=== PATIENT | female | born 1995 | race Caucasian/White ===

== ENCOUNTER → 2016-06-07 09:50 | Outpatient (CLI) | payer MEDICAID ==
[~2016-06-07 09:50] MED LIST: IBUPROFEN600 MG PO; PERCOCET 5-3251 TAB PO; PRENATAL COMPLE1 TAB PO
[2016-06-07 11:34] LABS: UDS - AMPHET NEGATIVE QUAL (NEGATIVE); UDS - BARB NEGATIVE QUAL (NEGATIVE); UDS - BENZO NEGATIVE QUAL (NEGATIVE); UDS - COCAINE NEGATIVE QUAL (NEGATIVE); UDS - METH NEGATIVE QUAL (NEGATIVE); UDS - OPIATE POSITIVE QUAL (NEGATIVE); UDS - PCP NEGATIVE QUAL (NEGATIVE); UDS - THC POSITIVE QUAL (NEGATIVE)
[2016-06-07 11:42] LABS: ALBUMIN 2.8 g/dL (3.4-5.0); ALKALINE PHOSPHATASE 109 U/L (46-116); ALT (SGPT) 14 U/L (10-68); BILIRUBIN - DIRECT 0.12 mg/dL (0.00-0.30); BILIRUBIN - INDIRECT 0.43 mg/dL (0.00-1.00); BILIRUBIN - TOTAL 0.55 mg/dL (0.2-1.3); CALC OSMOLALITY 273 mosm/kg (275-300); CALCIUM 9.1 mg/dL (8.5-10.1); CARBON DIOXIDE 25.7 mmol/L (21.0-32.0); CHLORIDE - SERUM 103 mmol/L (98-107); CREATININE - SERUM 0.7 mg/dL (0.6-1.3); GLUCOSE 72 mg/dL (74-106); PROTEIN - SERUM 6.6 g/dL (6.4-8.2); SODIUM 138 mmol/L (136-145); UREA NITROGEN 11 mg/dL (7-18); URIC ACID 4.6 mg/dL (2.6-7.2); eGFR NON AFRICAN AMERICAN > 90 mL/min (90-120)
[2016-06-07 11:45] LABS: BASOPHILS 0.1 % (0.0-2.0); EOSINOPHILS 0.2 % (0-7); HEMATOCRIT 35.7 % (36.0-48.0); HEMOGLOBIN 12.1 g/dL (12-16); IMMATURE GRANULOCYTES 0.6 % (0-5); LYMPHOCYTES 15.3 % (15-50); MCH 33.2 pg (26.0-34.0); MCHC 33.9 g/dL (31.0-37.0); MCV 97.8 fL (80.0-100.0); MEAN PLATELET VOLUME 10.9 fL (7.4-10.4); MONOCYTES 7.8 % (2-11); RBC 3.65 10x6/uL (4.00-5.40); RDW 12.3 % (11.5-14.5); WBC 11.3 10x3/uL (4.8-10.8)
[2016-06-07 12:01] LABS: APPEARANCE HAZY (CLEAR); BILIRUBIN NEGATIVE (NEGATIVE); COLOR YELLOW (YELLOW); GLUCOSE NEGATIVE (NEGATIVE); KETONE NEGATIVE (NEGATIVE); LEUKOCYTE ESTERASE 2+ (NEGATIVE); NITRITE NEGATIVE (NEGATIVE); PLATELET COUNT 225 10x3/uL (130-400); PROTEIN NEGATIVE (NEGATIVE)
[2016-06-07 12:05] LABS: BACTERIA MANY /hpf (NONE SEEN); EPITHELIAL CELLS 0-5 /hpf (0-5); MUCUS <1+ /lpf (NONE SEEN)
[2016-06-09 18:27] LABS: PROTEIN - URINE 24.6 mg/dL (0.0-11.9)
[2016-06-11 13:12] LABS: UDSC - AMPHET Negative ng/mL (Cutoff=1000); UDSC - BARB Negative ng/mL (Cutoff=300); UDSC - BENZO Negative ng/mL (Cutoff=300); UDSC - COC Negative ng/mL (Cutoff=300); UDSC - METH Negative ng/mL (Cutoff=300); UDSC - OPIATES Negative (Cutoff=300); UDSC - PCP Negative ng/mL (Cutoff=25); UDSC - PROPOXY Negative ng/mL (Cutoff=300); UDSC - THC Positive (Cutoff=50)
[2016-06-20 09:20] VITALS: BMI 21.8
== END | disposition home or self-care (01) ==
LOC: D.LDO 09:50
PROVIDERS: Specialist
DX: Z34.83 Encounter for supervision of other normal pregnancy, third trimester (principal); Z3A.36 36 weeks gestation of pregnancy; R03.0 Elevated blood-pressure reading, without diagnosis of hypertension

== ENCOUNTER → 2016-06-09 17:15 | Outpatient (CLI) | payer MEDICAID ==
[2016-06-20 09:20] VITALS: BMI 21.8
== END | disposition home or self-care (01) ==
LOC: D.LDO 17:15
DX: O36.5930 Maternal care for other known or suspected poor fetal growth, third trimester, not applicable or unspecified (principal); Z3A.37 37 weeks gestation of pregnancy

== ENCOUNTER → 2016-06-15 13:30 | Outpatient (CLI) | payer MEDICAID ==
[2016-06-20 09:20] VITALS: BMI 21.8
== END | disposition home or self-care (01) ==
LOC: D.LDO 13:30
DX: O36.5930 Maternal care for other known or suspected poor fetal growth, third trimester, not applicable or unspecified (principal); Z3A.37 37 weeks gestation of pregnancy

== ENCOUNTER 2016-06-20 04:00 | Inpatient (IN) | payer MEDICAID ==
[~2016-06-20] VITALS: Ht 162.6 cm; Wt 57.6 kg
[2016-06-20] VITALS (9 sets, daily range): BP systolic 93–143; BP diastolic 51–88; Ht 162.6 cm; Wt 57.6 kg
[2016-06-20] MEDS ORDERED: PRENATAL COMPLE1 TAB PO (04:46)
[2016-06-20 06:34] LABS: HEMATOCRIT 33.5 % (36.0-48.0); HEMOGLOBIN 11.6 g/dL (12-16); MCH 33.5 pg (26.0-34.0); MCHC 34.6 g/dL (31.0-37.0); MCV 96.8 fL (80.0-100.0); MEAN PLATELET VOLUME 11.5 fL (7.4-10.4); RBC 3.46 10x6/uL (4.00-5.40); RDW 12.3 % (11.5-14.5); WBC 12.3 10x3/uL (4.8-10.8)
[2016-06-20 06:49] LABS: APPEARANCE HAZY (CLEAR); BILIRUBIN NEGATIVE (NEGATIVE); COLOR YELLOW (YELLOW); GLUCOSE NEGATIVE (NEGATIVE); KETONE NEGATIVE (NEGATIVE); LEUKOCYTE ESTERASE TRACE (NEGATIVE); NITRITE NEGATIVE (NEGATIVE); PROTEIN 1+ mg/dL (NEGATIVE); UROBILINOGEN NORMAL (NORMAL)
[2016-06-20 06:50] LABS: BACTERIA MANY /hpf (NONE SEEN); EPITHELIAL CELLS 0-5 /hpf (0-5); RED CELLS - URINE 0-5 /hpf (0-5); WHITE CELLS - URINE 0-5 /hpf (0-5)
[2016-06-20 06:54] LABS: UDS - AMPHET NEGATIVE QUAL (NEGATIVE); UDS - BARB NEGATIVE QUAL (NEGATIVE); UDS - BENZO NEGATIVE QUAL (NEGATIVE); UDS - COCAINE NEGATIVE QUAL (NEGATIVE); UDS - METH NEGATIVE QUAL (NEGATIVE); UDS - OPIATE POSITIVE QUAL (NEGATIVE); UDS - PCP NEGATIVE QUAL (NEGATIVE); UDS - THC POSITIVE QUAL (NEGATIVE)
--- NOTE | 2016-06-20 14:37 | NUR ---
RECEIVED PT FROM VIA BED TO ROOM 1214. BED LOCKED AND PLACED IN LOW POSITION. VSS. PT ORIENTED TO ROOM, BED, AND CALL LIGHT. SR UPX2. CALL LIGHT IN REACH. C/O "BURNING" TO INCISION.
--- NOTE | 2016-06-20 14:40 | NUR ---
FUNDUS FIRM AT U/1. RUBRA LOCHIA MOD AMT. NO CLOTS EXPRESSED ON FUNDAL MASSAGE. ABDOMINAL DRESSING DRY WITHOUT DRAINAGE. PERIPAD CHANGED. SMALL AMT OF EDEMA NOTED TO LABIA. HRRR WITHOUT AUDIBLE MURMUR. BBS CLEAR. BS X 4-HYPOACTIVE. ICE PACK TO INCISION. NEG HOMANS' SIGN. PPP. PT INSTRUCTED ON USE OF INCENTIVE SPIROMETER. PT PULLS 2000 WITHOUT DIFFICULTY. SURGICAL PILLOW PROVIDED TO PT AND INSTRUCTED ON TCDB TECHNIQUE.
--- NOTE | 2016-06-20 15:04 | NUR ---
DEMEROL LANDING MAN STARTED ORDERED. PT INSTRUCTED ON MED AND USE OF BUTTON. DEMONSTRATES UNDERSTANDING.
--- NOTE | 2016-06-20 15:10 | NUR ---
SCDS ON BLE. PUMP ON. PT INSTRUCTED ON PURPOSE. VERBALIZES UNDERSTANDING.
--- NOTE | 2016-06-20 15:44 | NUR ---
PT C/O INCISIONAL PAIN/BURNING OF "9" ON 0-10 PAIN SCALE. TORADOL 30 MG GIVEN SIVP OVER 2 MINUTES. PT INSTRUCTED ON MED. VERBALIZES UNDERSTANDING.
--- NOTE | 2016-06-20 17:05 | NUR ---
PT REPOSITIONS TO LEFT SIDE. PROPPED WITH PILLOWS. STANLEY WELL.
--- NOTE | 2016-06-20 18:20 | NUR ---
PT IS RESTING IN BED. NEW IV BAG HUNG. PT OFFERS NO COMPLAINTS. IV PATENT L WRIST. BECK INTACT. I & O RECORDED.
--- NOTE | 2016-06-20 19:40 | NUR ---
AWAKE DURING INITIAL ROUNDS. INTRODUCED SELF. V/S TAKEN. ASSESSMENT DONE. STATUS POST "EMERGENCY" C/S TODAY FOR IUGR/NONREASSURING STATUS. A1. LOW TRANSVERSE INCISION WITH DERMABOND. BECK CATH TO DRAINAGE BAG PATENT. IVF--NS + 20 units PITOCIN TO L WRIST. ON DEMEROL SHEETFED PRESS OPERATOR FOR PAIN MANAGEMENT. SCD's TO BOTH LOWER EXTREMITIES. ICE BAG TO ADB. FAMILY IN THE ROOM.
--- NOTE | 2016-06-20 20:00 | NUR ---
NURSERY NURSE BROUGHT BABY TO MOM FOR BREAST-FEEDING.
--- NOTE | 2016-06-20 21:07 | NUR ---
BABY BACK IN THE NURSERY.
--- NOTE | 2016-06-20 21:14 | NUR ---
PAIN LEVEL "7"/10 FROM ABD INCISION. TORADOL 30mg IV GIVEN FOR BREAKTHROUGH PAIN. BECK/LUIS CARLOS-CARE DONE. LUIS CARLOS-PAD CHANGED. IV PUMP CLEARED. BECK CATH BAG EMPTIED.
--- NOTE | 2016-06-20 21:30 | NUR ---
NURSERY NURSE BROUGHT BABY TO MOM's ROOM. INSTRUCTED ON NEXT FEEDING TIME.
--- NOTE | 2016-06-20 23:10 | NUR ---
V/S STABLE. DENIES NEEDS AT THIS TIME. FOB IN THE ROOM.
--- NOTE | 2016-06-20 23:30 | NUR ---
INFANT HERE FOR . GOOD -MATERNAL BONDING.
--- NOTE | 2016-06-21 01:00 | NUR ---
BABY BACK IN THE NURSERY UNTIL NEXT FEEDING.
--- NOTE | 2016-06-21 03:15 | NUR ---
BABY HERE FOR .
[2016-06-21 03:50] VITALS: BP 128/82
--- NOTE | 2016-06-21 03:50 | NUR ---
V/S STABLE. LUIS CARLOS-PAD CHANGED. REPOSITIONED. BECK CATH BAG EMPTIED. IV PUMP CLEARED. BABY BROUGHT BACK TO THE NURSERY IN OPEN CRIB.
--- NOTE | 2016-06-21 04:10 | NUR ---
PAIN LEVEL "5.5"/10. TORADOL 30mg IV GIVEN FOR BREAK-THROUGH PAIN.
[2016-06-21 05:15] LABS: RAPID PLASMA REAGIN Non Reactive (Non Reactive)
--- NOTE | 2016-06-21 05:40 | NUR ---
GARMENT FORM ASSEMBLER HERE TO DRAW AM LAB.
--- NOTE | 2016-06-21 05:44 | NUR ---
IVF INFUSED AND CONVERTED TO SALINE LOCK.
--- NOTE | 2016-06-21 06:21 | NUR ---
EBONY CLANCY. INSTRUCTED PATIENT SHE WILL NEED TO VOID WITHIN 4hrs AND TO CALL FOR ASSISTANCE WHEN GETTING OUT OF BED FOR THE FIRST TIME. WILL NEED TO MEASURE FIRST THREE VOIDS. VERBALIZED UNDERSTANDING. BABY AT THIS TIME. GOOD INFANT-MATERNAL BONDING. SLEPT ON AND OFF DURING THE NIGHT. CONTINUING PLAN OF CARE. FOB IN THE ROOM.
[2016-06-21 06:42] LABS: BASOPHILS 0.2 % (0.0-2.0); EOSINOPHILS 0.6 % (0-7); HEMATOCRIT 31.1 % (36.0-48.0); HEMOGLOBIN 10.4 g/dL (12-16); IMMATURE GRANULOCYTES 0.3 % (0-5); LYMPHOCYTES 19.7 % (15-50); MCH 32.6 pg (26.0-34.0); MCHC 33.4 g/dL (31.0-37.0); MCV 97.5 fL (80.0-100.0); MEAN PLATELET VOLUME 11.4 fL (7.4-10.4); NEUTROPHILS 72.2 % (40-80); PLATELET COUNT 166 10x3/uL (130-400); RBC 3.19 10x6/uL (4.00-5.40); RDW 12.1 % (11.5-14.5); WBC 11.9 10x3/uL (4.8-10.8)
[2016-06-21 07:24] VITALS: BP 123/86
--- NOTE | 2016-06-21 07:30 | NUR ---
PT SITTING UP IN BED WITH ON CHEST. REQUESTS BABY TO BE TAKEN BACK TO NURSERY SO SHE CAN EAT BREAKFAST. VSS. HEART RRR. LUNG SOUNDS CLEAR BILATERALLY. ABDOMEN SOFT. BOWEL SOUNDS ACTIVE X4 QUADRENTS. SALINE LOCK NOTED TO LEFT WRIST. PATENT. CDI. SCDS NOTED TO BLE. PT RATES PAIN A 6/10. ASSISTED PT UP TO USE RESTROOM. APPROX 550 ML RED TINGED URINE FROM LOCHIA NOTED TO HAT. NO CLOTS NOTED. 2X1 INCH STRIP LOCHIA RUBRA NOTED TO BACK OF LUIS CARLOS PAD. CHANGED LUIS CARLOS PAD. PT DENIES OTHER NEEDS AT THIS TIME. BED LOW. PHONE AND CALL LIGHT IN REACH. SIDE RAILS UP X2.
--- NOTE | 2016-06-21 09:07 | NUR ---
PT LYING IN BED WITH FOB AT BEDSIDE. APPROX 400 ML URINE DRAINED FROM HAT. DENIES NEEDS AT THIS TIME. BED LOW. PHONE AND CALL LIGHT IN REACH. SIDE RAILS UP X2.
--- NOTE | 2016-06-21 10:09 | NUR ---
PT SITTING UP IN BED . RATES PAIN 8 ON SCALE OF 0-10. REMOVED NICOTINE PATCH FROM YESTERDAY AND PLACED NEW PATCH. ON RIGHT SHOULDER. DENIES NEEDS AT THIS TIME. BED LOW. PHONE AND CALL LIGHT IN REACH. SIDE RAILS UP X2.
--- NOTE | 2016-06-21 10:18 | NUR ---
PT UP USING RESTROOM. APPROX 650 ML URINE NOTED IN HAT. PT CHANGED LUIS CARLOS PAD. SMALL LOCHIA RUBRA NOTED TO OLD PAD. ADMINISTERED MOTRIN PO FOR PAIN RATED 8/10. PT DENIES OTHER NEEDS AT THIS TIME. BED LOW. PHONE AND CALL LIGHT IN REACH. SIDE RAILS UP X2.
--- NOTE | 2016-06-21 11:03 | NUR ---
PT SITTING UP IN BED WITH FAMILY AT BEDSIDE. REQUESTS MEDICATION FOR PAIN RATED 8/10. ADMINISTERED PERCOCET 10 PO. DENIES OTHER NEEDS. BED LOW. PHONE AND CALL LIGHT IN REACH. SIDE RAILS UP X2.
--- NOTE | 2016-06-21 11:12 | NUR ---
Neno Lr 06/21/16 LE@ 9:20 S: Patient states is going great, baby latches so good, baby is doing so great, she feels sore but great also. Baby latches perfect at least 95%. O: FOB and patient both lying in bed watching television, lights off, her mother is standing in room. Congratulated on delivered, excited to hear how well is going. Explain does take time and patience in the beginning. Explain feeding cues, feeding baby on demand will help with establishing her milk supply. Offer baby the breast for every feeding. If she experiences sore nipples or problems with , please ask for help. Explain and provided handouts on hand expression, engorgement, and baby diaper count. Asked if client gets WIC, offered to make WIC appointment, provided date and time of appointment. A:Patient seems confident with , FOB very supportive. P: Continue to support exclusively during hospital visit. Ke Huang, CLC
--- NOTE | 2016-06-21 11:51 | NUR ---
PT LYING IN BED WITH ON CHEST. REASSESSED PAIN. PT RATES PAIN /10. BED LOW. PHONE AND CALL LIGHT IN REACH. PHONE AND CALL LIGHT IN REACH. DENIES NEEDS AT THIS TIME.
--- NOTE | 2016-06-21 12:15 | NUR ---
PT SITTING UP IN BED EATING LUNCH. REQUESTS ICE WATER AND MORE ICE IN HER ICE PACK. RATES PAIN 3 ON SCALE OF 0-10. DENIES FURTHER NEEDS AT THIS TIME. BED LOW. PHONE AND CALL LIGHT IN REACH. SIDE RAILS UP X2.
--- NOTE | 2016-06-21 13:00 | NUR ---
PT UP IN SHOWER. CHANGED BED LINENS. REMOVED INCISIONAL BANDAGE. NO REDNESS, SWELLING, OR FOUL ODOR NOTED. EDGES WELL APPROXIMATED. PTS MOTHER AND FOB IN ROOM HELPING PT. DENIES UNCONTROLLED PAIN. DENIES FURTHER NEEDS AT THIS TIME. BED LOW. PHONE AND CALL LIGHT IN REACH. SIDE RAILS UP X2.
--- NOTE | 2016-06-21 13:58 | NUR ---
DR. MARIN IN ROOM WITH PT.
--- NOTE | 2016-06-21 14:09 | NUR ---
PT LYING IN BED WITH FAMILY AND FOB AT BEDSIDE. PT USING INCENTIVE SPIROMETER. REQUESTED TO SEE BABY. NURSERY NOTIFIED. PT RATES PAIN 02/10. INFORMED PT SHE COULD HAVE A NORCO AT 3. PLACED NEW ICE PACK ON INCISIONAL AREA. DENIES NEEDS AT THIS TIME. BED LOW. PHONE AND CALL LIGHT IN REACH. SIDE RAILS UP X2.
--- NOTE | 2016-06-21 15:17 | NUR ---
PT SITTING UP IN BED WITH FAMILY AND INFANT AT BEDSIDE. PT RATES PAIN /10. ADMINISTERED PERCOCET PO. DENIES FURTHER NEEDS. BED LOW. PHONE AND CALL LIGHT IN REACH. SIDE RAILS UP X2.
--- NOTE | 2016-06-21 16:02 | NUR ---
PT SITTING UP IN BED WITH ON CHEST. REASSESSED PTS PAIN. RATES PAIN 3/10. DENIES NEEDS AT THIS TIME. BED LOW. PHONE AND CALL LIGHT IN REACH. SIDE RAILS UP X2.
--- NOTE | 2016-06-21 17:20 | NUR ---
PT REQUESTS MEDICATION FOR "CRAMPING PAIN". ADMINISTERED 600 MG MOTRIN PO. PT REQUESTS ICE WATER. DENIES OTHER NEEDS. BED LOW. PHONE AND CALL LIGHT IN REACH. SIDE RAILS UP X2.
--- NOTE | 2016-06-21 18:19 | NUR ---
PT SITTING IN BED. FOB AND AT BEDSIDE. REASSESSED PTS PAIN. PT RATES PAIN 5/10. DENIES OTHER NEEDS AT THIS TIME. BED LOW. PHONE AND CALL LIGHT IN REACH. SIDE RAILS UP X2.
[2016-06-21 19:30] VITALS: BP 148/79
--- NOTE | 2016-06-21 19:30 | NUR ---
SHIFT ASSESSMENT AND VITAL SIGNS DONE. LUNGS CLEAR. FUNDUS MIDLINE/FIRM. LOW TRANVERSE INCISION WITH DERMABOND: INTACT WITH NO REDNESS/DRAINAGE. PT REPORTS SCANT LOCHIA AND NO CLOTS. LUNGS CLEAR. INC. SPIR. DONE AT THIS TIME. SCDS OFF BUT PT INFORMED TO USE AT BEDTIME. BOWEL SOUNDS ACTIVE X 4 QUADS. SALINE LOCK LEFT WRIST PATENT. PT REQUESTS PAIN MEDS. WILL BRING TO PT PABLO.
--- NOTE | 2016-06-21 19:42 | NUR ---
PERCOCET 10 MG GIVEN AT THIS TIME. PT VISITING WITH FAMILY/FRIENDS. DENIES ANY OTHER NEEDS. INSTRUCTED TO CALL PRN.
--- NOTE | 2016-06-21 20:40 | NUR ---
ROOM CHECK. PT REPORTS PAIN AT LEVEL 3.5/4 NOW. STATES "ITS MUCH BETTER". PT DENIES ANY COMPLAINTS AT THIS TIME.
--- NOTE | 2016-06-21 22:00 | NUR ---
ROOM CHECK. PT NURSING INFANT WITH FOB AT BEDSIDE. DENIES ANY REQUESTS/COMPLAINTS. WILL CALL PRN.
--- NOTE | 2016-06-21 22:30 | NUR ---
PT REQUESTS TEMP BE TAKEN. STATES "I FEEL A LITTLE FLUSHED/HOT". TEMP: 98.3. INFORMED PT THAT ROOM FEELS A LITTLE STUFFY. PT UNAWARE THAT THERMOSTAT AND VENT ARE UNDER WINDOW. FOB ADJUSTED TEMP AND MOVED ITEMS OFF VENT. PT REQUESTS MOTRIN FOR CRAMPING. INFORMED PT THAT SHE CANNOT HAVE RIGHT NOW BUT NURSE WILL GIVE SOON POSSIBLE. NO OTHER REQUESTS AT THIS TIME.
--- NOTE | 2016-06-21 22:45 | NUR ---
PT AMBULATING IN QUAN PUSHING INFANT CRIB TO NURSERY. APPEARS TO BE WALKING WELL AND UPRIGHT WITH NO DIFFICULTIES.
--- NOTE | 2016-06-21 23:42 | NUR ---
PERCOCET AND MOTRIN GIVEN AT THIS TIME. PT IN PROCESS OF NURSING . REQUESTS ASSISTANCE CHANGING INFANT DUE TO SOILED TSHIRT/BM. ASSISTED FOB WITH DIAPER CHANGE AND CLOTHING CHANGE. RESWADDLED INFANT. PT STATES SHE IS GOING TO BATHROOM AND WILL CALL WHEN READY TO SLEEP FOR SCD REPLACEMENT.
[2016-06-22] VITALS: BP 140/81
--- NOTE | 2016-06-22 | NUR ---
VITAL SIGNS/PAIN ASSESSMENT DONE BY David DOUGLAS RN AT THIS TIME.
--- NOTE | 2016-06-22 00:40 | NUR ---
CALLED TO ROOM. PT READY TO REST. SCDS REPLACED AND TURNED ON. FRESH ICE/WATER PROVIDED. NO OTHER REQUESTS AT THIS TIME.
--- NOTE | 2016-06-22 03:15 | NUR ---
INFANT INTO PT ROOM FOR FEEDING. HANDED TO PT AND ASKED IF ANY ASSISTANCE NEEDED. NO COMPLAINTS/ASSISTANCE REQUESTED AT THIS TIME. PT STATES "ILL PROBABLY NEED MY PAIN MEDS WHEN HE GETS FINISHED".
[2016-06-22 04:30] VITALS: BP 130/82
--- NOTE | 2016-06-22 04:30 | NUR ---
VITAL SIGNS DONE. PERCOCET GIVEN FOR PAIN PER PTS REQUEST. SCDS REPLACED. FRESH ICE WATER PROVIDED. PT TO CALL FOR FURTHER ASSISTANCE NEEDED.
--- NOTE | 2016-06-22 06:05 | NUR ---
ROOM CHECK DONE. PT AND FOB ASLEEP IN BED. NO APPARENT S/S OF DISTRESS NOTED.
--- NOTE | 2016-06-22 07:30 | NUR ---
PATIENT IS RESTING QUIETLY WITH EYES CLOSED. FOB RESTING AT THE BEDSIDE.
--- NOTE | 2016-06-22 08:00 | NUR ---
BUSINESS TECHNOLOGY PROFESSOR IN TO VISIT WITH THE PATIENT REGARDING DISCHARGE NEEDS. DR. MARIN HAS BEEN IN TO ASSESS WELL.
[2016-06-22] MEDS ORDERED: PERCOCET 5-3251 TAB PO (08:26)
[2016-06-22] MEDS ORDERED: IBUPROFEN600 MG PO (08:26)
--- NOTE | 2016-06-22 08:34 | OP ---
PATIENT NAME: JOSSELIN MORELOS MEDICAL RECORD: [id number] :93 LOCATION:[facility] D.1214 ADMISSION DATE:06/20/16 SURGEON: KENZIE LEIJA MD DATE OF OPERATION: 06/20/2016 PREOPERATIVE DIAGNOSES: 1. Intrauterine at 38 weeks, 0 days. 2. Nonreassuring heart rate tracing remote from delivery. 3. intolerance of labor. 4. Severe intrauterine growth restriction. POSTOPERATIVE DIAGNOSES: 1. Intrauterine at 38 weeks, 0 days. 2. Nonreassuring heart rate tracing remote from delivery. 3. intolerance of labor. 4. Severe intrauterine growth restriction. 5. Delivered. SURGEON: Kenzie Leija MD ANESTHESIA: Epidural anesthesia with Eva Huerta CRNA. PROCEDURE: Emergent primary low transverse with vacuum assistance. FINDINGS: Delivery of viable male from vertex presentation via emergent primary low-transverse with vacuum assistance under epidural anesthesia at 1321 p.m. with weight of 4 pounds 7.6 ounces and scores of 9 and 9 at 1 and 5 minutes respectively and nuchal times 1 was noted and reduced. The cord was clamped and cut. The infant was bulb suctioned and handed to awaiting pediatric nursing personnel. The placenta was delivered manually intact with 3-vessel cord at 1322 p.m. Twenty units of Pitocin and 1 liter of normal saline was begun IV. The fundus was noted to be firm. Normal appearing uterus, ovaries and tubes bilaterally. The patient went to the recovery room in stable condition, the infant to the nursery. DESCRIPTION OF PROCEDURE: After informed consent was given, the patient was taken to the operating room where epidural anesthesia was bolused and found to be adequate. She was placed in a dorsal supine position with a leftward tilt. She was prepped and draped sterilely. A Loja catheter was already in place with clear urine return noted. When adequate anesthesia was established, a Pfannenstiel skin incision was made with the scalpel and carried through to the underlying layer of fascia. The fascia was incised in the midline and the fascial incision extended bilaterally with the Shelley scissors. The superior portion of the fascial incision was grasped with 2 Aylin clamps and the rectus muscles dissected off sharply and bluntly. Attention was then turned to the inferior portion of the fascial incision, which was again grasped with 2 Aylin clamps and the rectus muscles dissected off sharply and bluntly. The rectus muscles were in the midline. Peritoneum identified and entered bluntly with a finger. This incision was extended superiorly and inferiorly with good visualization of the bladder. The bladder blade was inserted and the vesicouterine peritoneum was grasped with smooth pickups and entered sharply with Metzenbaum scissors. This incision was extended bilaterally and a bladder flap created digitally. The bladder blade was reinserted. The hysterotomy was then created with a knife. This was extended bilaterally bluntly and the 's head delivered atraumatically with vacuum assistance. Cord blood was OPERATIVE REPORT [id number] JOSSELIN MORELOS obtained. The cord was clamped times 2 and cut. The was bulb suctioned and handed to awaiting pediatric nursing personnel. The placenta was then delivered manually and passed off the field as specimen. The uterus was exteriorized, cleared of all clots and debris. The interior of the uterus was wiped with a moist lap sponge. The hysterotomy was then closed in 2 layers with 0 chromic in a running locked fashion, the second layer imbricating the first. Excellent hemostasis was noted and the uterus was returned to the abdomen. The abdomen was irrigated profusely and noted to be hemostatic. The rectus muscles were in the midline with 3 interrupted chromic sutures. The fascia was closed with 1-0 Vicryl in a running fashion, locking the first suture. The subcutaneous tissue was irrigated, any bleeders cauterized with Bovie and when noted to be sufficiently dry was closed with 3-0 Vicryl in a running fashion and the skin was closed with 3-0 Monocryl in a subcuticular fashion. Excellent hemostasis was noted. The Dermabond and pressure dressing were applied. Clear urine was noted at completion of the procedure. The patient tolerated the procedure well. Sponge, lap, needle, and instrument counts were reported correct times 2 and the patient went to the recovery room in stable condition, the infant to the nursery. ESTIMATED BLOOD LOSS: 800 cc. URINE OUTPUT: 200 cc. SPECIMENS: Placenta and cord blood. COMPLICATIONS: None. TRANSINT:[id number] Voice Confirmation ID: [id number] DOCUMENT ID: [id number] KENZIE LEIJA MD at 0834 CC: [id number] DICTATION DATE: 06/20/16 2216 TUB TENDER: 06/21/16 0012 ADM IN [facility] [address] [place] [address]
--- NOTE | 2016-06-22 08:35 | NUR ---
PATIENT MEDICATIED FOR PAIN THAT SHE STATES IS INCISIONAL WITH ABDOMINAL CRAMPING. SHE STATES THAT SHE WAS OUT WALKING IN THE HALLWAY EARLIER THIS MORNING BUT THERE WEREN'T NURSES AT THE DESK. SHE CONFIRMS THAT THOUGH IT IS UNCOMFORTABLE IT DOES HELP HER TO FEEL BETTER. FOB IS AT THE BEDSIDE AND IS ATTENTIVE. MOB HAS A PERIPAD PROTECTING HER INCISION FROM CLOTHING. THE WOUND EDGES ARE WELL APPROXIMATED AND WITHOUT S/S OF IRRITATION/INFECTION. WE DISCUSSED AT LENGTH THE NICOTINE PATCH. SHE STATED THAT IT CAUSED HER TO HAVE VERY VIVID BAD DREAMS. SUGGESTED TAKING IT OFF PRIOR TO GOING TO SLEEP. SHE ALSO STATES THAT IT HAS MADE HER ARM ACHE. INSTRUCTED HER TO PLACE THE PATCH CLEAR OF HER JOINT. SHE WAS INTERACTIVE. STATES THAT SHE DOESN'T INTEND TO USE THEM AFTER DISCHARGE BUT WILL APPRECIATE A REFERRAL TO THE [facility]. SHE IS EXPECTING [facility] APPT AT 0900. REMOVED THE NICOTINE PATCH FROM LEFT ARM AND WILL PROVIDE ANOTHER LATER THIS MORNING. WE ALSO DISCUSSED THE ROOMING IN PROCESS. SHE IS RELEIVED THAT SHE WILL STILL BE ABLE TO USE THE ROOM. FOB WILL FETCH HER MEDICATIONS.
--- NOTE | 2016-06-22 08:49 | NUR ---
REQUESTED TO SEE PATIENT FOR D/C NEEDS. MOM WAS POSITIVE FOR OPIATES AND THC ON ADMIT REPORTED BY NURSERY NURSE. NAME: ALEXEY ALVARADO FOB: NIKITA ALVARADO MOTHER: JOSSELIN ALVARADO BOTH ARE EMPLOYED AT [employer] MOM PLANS TO RETURN TO WORK WHEN RELEASED MEDICALLY MATERNAL GRANDMOTHER, JHON MORELOS, WILL CARE FOR WHEN MOM RETURNS TO WORK MOM STATES SHE LIVES AT [address] [place] [address] IN [place]. HE PHONE NUMBER IS [phone]. SHE STATES THAT SHE AND FOB LIVE THERE ALONG WITH HER MOTHER, JHON MORELOS AND HER MOTHER'S FIANCE, CAL COOPERBLANCO. PEDI OF CHOICE IS DR. WARREN THEY HAVE AN APPOINTMENT FOR WIC ON JUNE 27 MOM STATES SHE DOES NOT RECEIVE FOOD STAMPS MOM AND FOB STATE THEY HAVE EVERYTHING THEY NEED FOR , CARSEAT, CRIB, BASSINET, TEJA-N-PLAY, BOUNCER, DIAPERS, CLOTHES AND BABY WIPES. BOTH FOB AND MOM SMOKE CIGARETTES. MOM STATES SHE IS QUITTING AND THAT SHE HAS A GOOD START ALREADY. FOB STATES HE WILL BE QUITTING WELL. I HAVE ASKED THE NURSES TO PROVIDE THEM WITH INFORMATION FROM FOR ASSISTANCE IN QUITTING. MOM STATES THAT [facility] VISITED WITH THEM ABOUT HER POSITIVE UDS ON ADMIT. SHE STATES THEY HAVE A MEETING WITH [facility] THIS MORNING AT 0900. NO DISCHARGE NEEDS IDENTIFIED AT THIS TIME.
--- NOTE | 2016-06-22 09:36 | NUR ---
Zaida Lr 1.20.17 LE@8:30 S: Patient states she thinks baby is doing good with nursing, he likes to eat, her nipples aren't sore. FOB states both mother and baby are doing good, he adores baby. O: Patient is sitting up in bed watching television, FOB at bedside in chair. Explained that I would like to observe . Verifying infant does have a good latch is the first step in helping with establishing a milk supply. Patient states baby does eat good at the breast, he like to eat. takes times in the beginning. Explain breast milk composition, feeding cues, and how to verify infant is latched correctly to the breast. Nursery nurse brought infant into room, observed feeding cues. Observed patient latched baby to the breast. Infant was lying on his back with his head turned sideways, with only the nipple in his mouth. Showed patient how to remove her nipple from mouth. Explain to turn tummy to tummy, nose opposite of nipple, baby self latched. Baby latched to the right breast at 8:52, mouth full of breast, 140 degrees, sucking in a rocking motion, and cheeks round. Mother and baby show no display of discomfort, both appear content with feeding. Dr. Hastings came in room to speak with patient, informed I will let them visit. Infant was still nursing as I left the room. A: Parents both very supportive with , loving with . P: Continue to support exclusively during hospital visit. Ke Huang, CLC
--- NOTE | 2016-06-22 10:21 | NUR ---
PORTIA STILL IN MEETING WITH [facility].
--- NOTE | 2016-06-22 10:30 | NUR ---
COMMUNITY SERVICE PATROL OFFICER IN TO VISIT WITH PATIENT THE NURSES. NICOTINE PATCH PLACED. PATINET APPEARS COMFORTABLE AND DENIES NEEDS AT THIS TIME.
--- NOTE | 2016-06-22 10:49 | NUR ---
PATIENT OUT AMBULATING IN THE HALLWAY.
--- NOTE | 2016-06-22 10:51 | NUR ---
Nutrition Follow Up: Chart reviewed. Pt to d/c today. Diet: Regular Wt stable Meds and labs noted Rec continue current diet. RD following.
--- NOTE | 2016-06-22 11:00 | NUR ---
Zaida Lr 06.22.16 S: Patient states she requested to have CLC come back into room to verify baby is latched correctly. O: Patient is sitting up in infant, FOB standing at bedside. Observed at the breast, infant isn't turned completely tummy to tummy with only the nipple in his mouth. Infant came off breast. Let's try turning infant more tummy to tummy, and directly in front the breast. Observed patient latch , perfect latch, infant tummy to tummy, nose opposite of nipple, baby self latched on left breast, mouth full of breast, 140 degrees, sucking in a rocking motion, and cheeks round. Mother and baby show no display of discomfort, both appear content with feeding. Praised for latching infant, both parents are doing a great job. Positions pillows underneath infant to help support. Patient states that feels more comfortable. Patients states she just wanted to make sure she was latching baby correctly. She is doing great with feeding, encouraged to continue latching infant for every feeding. A: Patient wanted to verify she is latching baby correctly. P: Continue to support exclusively during hospital visit. Ke Huang, CLC
--- NOTE | 2016-06-22 11:10 | NUR ---
PORTIA UP AMBULATING AROUND HER ROOM. STATES THAT HER BLEEDING HAS BEEN LIKE THAT OF A PERIOD. DENIES NEEDS AT THIS TIME.
--- NOTE | 2016-06-22 12:40 | NUR ---
PORTIA RESTING IN HER BED, RECLINED WITH FOB AND INLAWS AT THE BEDSIDE. SHE IS RATING HER PAIN A 6-7. IV SL REMOVED FROM LEFT FA, CATHETER FULLY INTACT. SHE DENIES OTHER NEEDS AT THIS TIME.
--- NOTE | 2016-06-22 14:20 | NUR ---
DISCUSSED DISCHARGE INSTRUCTIONS WITH SHE AND HER FIANCEE. DISCUSSED INCISION CARE, PELVIC REST, MEDICATIONS, FOLLOW UP APPTS AND ROOMING IN. SHE VOICED QUESTIONS, AND UNDERSTANDING. PRESCRIPTIONS GIVEN. NO FURTHER NEEDS NOTED.
--- NOTE | 2016-06-22 14:35 | NUR ---
DISCUSSED DISCHARGE INSTRUCTIONS WITH PATIENT. INCLUDED INCISIONAL CARE, SIGNS OF INFECTION, KEEPING WOUND CLEAN AND DRY. MEDICATIONS DISCUSSED AND PRESCRIPTIONS GIVEN. SHE IS WITHOUT QUESTIONS. NURSERY BROUGHT IN TO BREAST FEED WHILE WE TALKED. SHE WILL BE ROOMING IN AND UNDERSTANDS THE PROCESS. HER WILL BE COMING BACK TO THE FACILITY AROUND 6 TO TALENT ACQUISITION SPECIALIST PRESCRIPTIONS.
--- NOTE | 2016-06-22 16:54 | NUR ---
PORTIA'S FIANCEE IS BACK FROM PHARMACY WITH MEDICATIONS. SHE KNOWS WHEN SHE HAD THEM LAST AND WHEN IT IS APPROPRIATE TO TAKE THEM AGAIN.
[2016-06-23 22:06] LABS: UDSC - AMPHET Negative ng/mL (Cutoff=1000); UDSC - BARB Negative ng/mL (Cutoff=300); UDSC - BENZO Negative ng/mL (Cutoff=300); UDSC - COC Negative ng/mL (Cutoff=300); UDSC - METH Negative ng/mL (Cutoff=300); UDSC - OPIATES Negative (Cutoff=300); UDSC - PCP Negative ng/mL (Cutoff=25); UDSC - PROPOXY Negative ng/mL (Cutoff=300); UDSC - THC Positive (Cutoff=50)
== END 2016-06-22 17:15 | disposition home or self-care (01) | DRG 765 ==
LOC: D.LD 04:00 → D.WS 04:10 → D.LD 04:10 → D.WS 14:37
PROVIDERS: ADMIT Specialist
PROC: 10D00Z1 Extraction of Products of Conception, Low, Open Approach (ICD-10-PCS; principal; 2016-06-20 13:30)
DX: O36.5930 Maternal care for other known or suspected poor fetal growth, third trimester, not applicable or unspecified (principal); O99.324 Drug use complicating childbirth; Z3A.38 38 weeks gestation of pregnancy; Z37.0 Single live birth; O76 Abnormality in fetal heart rate and rhythm complicating labor and delivery; R87.612 Low grade squamous intraepithelial lesion on cytologic smear of cervix (LGSIL); F12.90 Cannabis use, unspecified, uncomplicated; O99.334 Smoking (tobacco) complicating childbirth

== ENCOUNTER 2016-06-30 15:33 | Emergency (ER) | payer MEDICAID ==
[2016-06-20 09:20] VITALS: BMI 21.8
[2016-06-30 16:24] LABS: APPEARANCE HAZY (CLEAR); BILIRUBIN NEGATIVE (NEGATIVE); COLOR YELLOW (YELLOW); GLUCOSE NEGATIVE (NEGATIVE); KETONE NEGATIVE (NEGATIVE); LEUKOCYTE ESTERASE TRACE (NEGATIVE); NITRITE NEGATIVE (NEGATIVE); PH 5.5 (5.0-6.0); PROTEIN NEGATIVE (NEGATIVE); SPECIFIC GRAVITY 1.015 (1.005-1.020); UROBILINOGEN NORMAL (NORMAL)
[2016-06-30 16:26] LABS: EPITHELIAL CELLS OCC /hpf (0-5); RED CELLS - URINE 0-5 /hpf (0-5); WHITE CELLS - URINE 0-5 /hpf (0-5)
[2016-06-30 16:27] LABS: BACTERIA FEW /hpf (NONE SEEN); HYALINE CAST OCC /lpf (NONE SEEN)
== END 2016-06-30 17:29 | disposition home or self-care (01) ==
LOC: D.ER 15:33
PROVIDERS: Emergency Medicine
DX: G89.18 Other acute postprocedural pain (principal); F17.200 Nicotine dependence, unspecified, uncomplicated

== ENCOUNTER 2016-08-26 18:53 | Emergency (ER) | payer MEDICAID ==
[2016-06-20 09:20] VITALS: BMI 21.8
== END 2016-08-26 21:38 | disposition home or self-care (01) ==
LOC: D.ER 18:53
DX: G89.18 Other acute postprocedural pain (principal); M79.1 Myalgia; F17.200 Nicotine dependence, unspecified, uncomplicated